=== PATIENT | female | born 1995 | race Caucasian/White ===

== ENCOUNTER 2019-02-20 20:30 | Outpatient (CLI) | payer OTHER | END 2019-02-20 20:31 | disposition home or self-care (01) | LOC: SLEEPLAB 20:30 | PROVIDERS: ATTEND Family Medicine | DX: G47.10 Hypersomnia, unspecified (principal); R53.83 Other fatigue | CPT/HCPCS: 95810 ==

== ENCOUNTER 2022-09-22 08:12 | Day surgery (SDC) | payer OTHER ==
[2022-09-01 11:12] VITALS: BMI 33.9
[2022-09-22] MEDS ORDERED: Midazolam HCl 2 mg/2 ml Vial ONE (09:45)
[2022-09-22] MEDS ORDERED: Lidocaine 1% PF 5 ML VIAL ONE (09:59)
[2022-09-22] MEDS ORDERED: PROPOFOL 200 MG/20 ML VIAL ONE (09:59)
[2022-09-22] MEDS ORDERED: Loperamide HCl 2 MG CAP PO SCH (10:45)
== END 2022-09-22 12:04 | disposition home or self-care (01) ==
LOC: SDC 08:12
PROVIDERS: ATTEND Internal Medicine
PROC: 3E0H8GC Introduction of Other Therapeutic Substance into Lower GI, Via Natural or Artificial Opening Endoscopic (ICD-10-PCS; principal; 2022-09-22)
DX: A04.71 Enterocolitis due to Clostridium difficile, recurrent (principal); Z79.2 Long term (current) use of antibiotics; Z79.890 Hormone replacement therapy; Z79.899 Other long term (current) drug therapy; Z88.0 Allergy status to penicillin; Z88.1 Allergy status to other antibiotic agents
CPT/HCPCS: J2250; J2704